=== PATIENT | male | born 1995 | race Caucasian/White ===

== ENCOUNTER 2016-10-26 18:56 | Emergency (ER) | payer OTHER ==
[~2016-10-26] VITALS: Ht 190.5 cm; Wt 125.9 kg
[~2016-10-26 18:56] MED LIST: HYDR-906 PO; IBUP-1542 PO; IBUPROFEN
[2016-10-26 18:59] VITALS: Ht 190.5 cm; Wt 125.9 kg
[2016-10-26] MEDS ORDERED: ONDANSETRON (ODT) 4 MG TAB ODT STA (19:15)
--- NOTE | 2016-10-26 19:21 | ERD ---
ER Documentation Chief Complaint Date/Time DATE: 10/26/16 TIME: 19:18 Chief Complaint back pain x 2 days, cough x2 weeks off an on. hard to take a breath HPI 21-year-old otherwise healthy male presents to the emergency department with complaints of right sided upper back pain 2 days. Patient states that for the past 2 weeks he has been experiencing a constant productive cough with associated runny nose and congestion. He currently rates his right-sided back pain as a constant 7 out of 10 sharp pain localized to the right posterior lateral upper thoracic region. He states the pain is worse upon breathing. Patient denies any recent surgery, prolonged immobilization, leg or calf swelling or tenderness. Patient denies any fever, vomiting, diarrhea, or abdominal pain. ROS All systems reviewed and are negative except as per history of present illness. Medications Home Meds Active Scripts Albuterol Sulfate* (Proair HFA*) 8.5 Gm Hfa.aer.ad, 2 PUFF INH Q4, #1 INHALER Prov:NICANOR FOWLER PA-C 10/26/16 Dextromethorphan Hb-Promethazine Hcl (Promethazine DM Syrup) 473 Ml Syrup, 5 ML PO Q6 Y for COUGH for 7 Days, ML Prov:NICANOR FOWLER PA-C 10/26/16 Ibuprofen* (Motrin*) 600 Mg Tab, 600 MG PO Q6, #30 TAB Prov:NICANOR FOWLER PA-C 10/26/16 Azithromycin* (Zithromax*) 250 Mg Tablet, 250 MG PO .ZPACK DIRECTED, #6 TAB TAKE 500 MG (2 TABS) THE FIRST DAY THEN 250 MG (1 TAB) DAYS 2-5 Prov:NICANOR FOWLER PA-C 10/26/16 Hydrocodone/Acetaminophen (Erie 5-325 Tablet) 1 Each Tablet, 1 EACH PO Q6, #6 TAB Prov:MARYANN TRACEY PA-C 06/05/16 Ibuprofen* (Motrin*) 600 Mg Tab, 600 MG PO Q6, #30 TAB Prov:MARYANN TRACEY PA-C 06/05/16 Ibuprofen* (Motrin*) 600 Mg Tab, 600 MG PO Q6H Y for PAIN AND OR ELEVATED TEMP, #30 TAB Prov:RICHIE HINES MD 9/18/16 Reported Medications [Ibuprofen] No Conflict Check 02/19/11 Discontinued Scripts Hydrocodone/Acetaminophen (Erie 5-325 Tablet) 1 Each Tablet, 1 EACH PO Q6 for 3 Days, #7 TAB Prov:NICANOR FOWLER PA-C 10/26/16 Allergies Allergies: Coded Allergies: No Known Drug Allergies (Verified Allergy, Mild, 10/26/16) PMhx/Soc Medical and Surgical Hx: pt denies Medical Hx History of Surgery: Yes (BACK) Anesthesia Reaction: No Hx Neurological Disorder: No Hx Respiratory Disorders: No Hx Cardiac Disorders: No Hx Psychiatric Problems: No Hx Miscellaneous Medical Probl: No Hx Alcohol Use: No Hx Substance Use: No Hx Tobacco Use: No Smoking Status: Never smoker Physical Exam Vitals Vital Signs Date Time Temp Pulse Resp B/P Pulse Ox O2 Delivery O2 Flow Rate FiO2 10/26/16 18:59 98.0 100 18 142/84 99 Physical Exam Const: Well-developed, well-nourished, in mild distress Head: Atraumatic Eyes: Normal Conjunctiva ENT: Normal External Ears, Nose and Mouth. Posterior pharynx non- erythematous. No tonsillar swelling or exudate. Neck: Full range of motion..~ No meningismus. Resp: No tenderness to palpation along right lateral ribs. Clear to auscultation bilaterally, no wheezes, rhonchi, rales. Mildly decreased breath sounds along bilateral lower lobes. Cardio: Regular rate and rhythm, no murmurs Abd: Soft, non tender, non distended. Normal bowel sounds Skin: No petechiae or rashes Back: No midline or flank tenderness Ext: No cyanosis, or edema Neur: Awake and alert Psych: Normal Mood and Affect Results 24 hrs Current Medications Medications (Trade) Dose Ordered Sig/Salbador Route PRN Reason Start Time Stop Time Status Last Admin Dose Admin Acetaminophen/ Hydrocodone Bitart ([place] (5/325)) 1 tab ONCE ONCE PO 10/26/16 19:30 10/26/16 19:30 DC Ondansetron HCl (Zofran Odt) 4 mg ONCE STAT ODT 10/26/16 19:15 10/26/16 19:17 DC 10/26/16 20:16 Ibuprofen (Motrin) 800 mg ONCE ONCE PO 10/26/16 19:30 10/26/16 19:31 DC 10/26/16 20:15 Procedures/MDM PROCEDURE: XR Chest. CLINICAL INDICATION: Right-sided chest pain TECHNIQUE: PA and lateral views of the chest were obtained. COMPARISON: None available FINDINGS: The trachea central bronchi are patent. The cardiomediastinal silhouette is within normal limits. The lungs are clear. No pleural effusion or pneumothorax is identified. The visualized osseous structures are intact. RPTAT:HJJR IMPRESSION: Unremarkable two-view chest x-ray. Physician Nando Date Time Electronically viewed and signed by Physician Nando on 10/26/2016 21:13 JR/ CC: NICANOR FOWLER PA-C Chest X-ray 1V Interpreted by radiologist: Soft Tissue: No acute abnormalities Bones: No acute abnormalities Mediastinum/Cardiac Silhouette/Lungs: No acute abnormalities 21-year-old male presents the emergency department complaining of right-sided back pain with associated cough and runny nose. Physical exam unremarkable for any respiratory wheezing, rhonchi, or rales. Vital signs reviewed. Patient afebrile, non-tachycardic and non-hypoxic upon arrival. Patient denies any history of lung or heart problems and denies chest pain at this time. Patient' s blood pressure was elevated (>120/80) but appears stable without evidence of hypertension emergency or urgency. The patient was counseled about the risks of hypertension and urged to pursue outpatient monitoring and therapy within a week with their primary care physician. Chest x-ray revealed no evidence of pleural effusion, pneumothorax, or consolidation. At this time I have low suspicion for acute pneumonia, PE, asthma, COPD, cardiac related shortness of breath, spontaneous pneumothorax, systemic illness or sepsis. Patient's presentation consistent with acute bronchitis and right-sided rib pain likely due to pleurisy. Based on patient's history of present illness and physical examination the decision was made to discharge. The patient was re-evaluated after ED treatment and stabilizing measures, and symptoms have improved. There is no evidence of life threatening injuries or illnesses at this time. On re-examination, patient resting in no distress, stable vital signs, reports feeling better and safe for discharge with outpatient follow up with PMD in 1-2 days. Patient given return precautions. Departure Diagnosis: Primary Impression: Back pain Back pain location: thoracic back pain Chronicity: acute Back pain laterality: right Qualified Code: M54.6 - Acute right-sided thoracic back pain Additional Impression: NICANOR Villalba PA-C October 26, 2016 19:21
[2016-10-26] MEDS ORDERED: IBUPROFEN 800 MG TAB PO ONE (19:30)
[2016-10-26] MEDS ORDERED: HYDROCODONE/APAP (5/325) TAB PO ONE (19:30)
[2016-10-26] MEDS ORDERED: D-ME473S18 PO (20:38)
[2016-10-26] MEDS ORDERED: HYDR-906 PO (20:38)
[2016-10-26] MEDS ORDERED: AZIT250T94 PO (20:38)
[2016-10-26] MEDS ORDERED: IBUP-1542 PO (20:38)
[2016-10-26] MEDS ORDERED: ALBU8.5H3 INH (20:40)
--- NOTE | 2016-10-26 21:13 | RADRPT ---
PROCEDURE: XR Chest. CLINICAL INDICATION: Right-sided chest pain TECHNIQUE: PA and lateral views of the chest were obtained. COMPARISON: None available FINDINGS: The trachea central bronchi are patent. The cardiomediastinal silhouette is within normal limits. The lungs are clear. No pleural effusion or pneumothorax is identified. The visualized osseous str uctures are intact. RPTAT:HJJR IMPRESSION: Unremarkable two-view chest x-ray. Physician Nando Date Time Electronically viewed and signed by Ramiro Valderrama Physician on 10/26/2016 21:13 JR/
[2016-10-26 21:31] VITALS: BP 139/80; PULSE 88; RESP 16
== END 2016-10-26 21:32 | disposition home or self-care (01) ==
LOC: FTE 18:56
DX: M54.6 Pain in thoracic spine (principal); R05 Cough
CPT/HCPCS: 71020; Z7502; Z7610

== ENCOUNTER 2016-10-27 07:52 | Inpatient (IN) | payer OTHER ==
[~2016-10-27] VITALS: Ht 190.5 cm; Wt 124.7 kg
[~2016-10-27 07:52] MED LIST changes: +ALBU8.5H3 INH; +AZIT250T94 PO; +D-ME473S18 PO
[2016-10-27] MEDS ORDERED: morphine 4 MG/ML VIAL IV STA (08:35)
[2016-10-27] MEDS ORDERED: ONDANSETRON 4 MG INJ IV STA (08:35)
[2016-10-27] MEDS ORDERED: SOD CHLORIDE 0.9% 1,000 ML IV STA (08:35)
--- NOTE | 2016-10-27 08:59 | ERD ---
ER Documentation Chief Complaint Date/Time DATE: 10/27/16 TIME: 08:57 Chief Complaint was seen here yesterday diagnosed with plurisy and still having pain HPI 20-year-old male comes in with bilateral back pain has been ongoing for approximately a week now. Patient states that it started on the right side and achy, constant noted when he coughs or tries to take a deep breath in or out. He also reports that he was seen here yesterday and has been taking ibuprofen and cough medication however has not had any improvement of his symptoms. He reports that he attends college, he has had a cough for approximately 2 weeks and started with a fever however that he is no longer febrile. Has had a dry cough overall, there is no hemoptysis. Patient's pain extends to the bilateral flank, and after leaving yesterday states that it starts to happen on the left side as well. He has not had any dysuria, urgency frequency or hematuria. He reports 2 episodes of nonbloody nonbilious emesis as well yesterday. ROS All systems reviewed and are negative except as per history of present illness. Medications Home Meds Active Scripts Albuterol Sulfate* (Proair HFA*) 8.5 Gm Hfa.aer.ad, 2 PUFF INH Q4, #1 INHALER Prov:NICANOR FOWLER PA-C 10/26/16 Dextromethorphan Hb-Promethazine Hcl (Promethazine DM Syrup) 473 Ml Syrup, 5 ML PO Q6 Y for COUGH for 7 Days, ML Prov:NICANOR FOWLER PA-C 10/26/16 Ibuprofen* (Motrin*) 600 Mg Tab, 600 MG PO Q6, #30 TAB Prov:NICANOR FOWLER PA-C 10/26/16 Azithromycin* (Zithromax*) 250 Mg Tablet, 250 MG PO .ArabellaPASUSANNAH DIRECTED, #6 TAB TAKE 500 MG (2 TABS) THE FIRST DAY THEN 250 MG (1 TAB) DAYS 2-5 Prov:NICANOR FOWLER PA-C 10/26/16 Hydrocodone/Acetaminophen (Homer 5-325 Tablet) 1 Each Tablet, 1 EACH PO Q6, #6 TAB Prov:MARYANN TRACEY PA-C 06/05/16 Ibuprofen* (Motrin*) 600 Mg Tab, 600 MG PO Q6, #30 TAB Prov:MARYANN TRACEY PA-C 06/05/16 Ibuprofen* (Motrin*) 600 Mg Tab, 600 MG PO Q6H Y for PAIN AND OR ELEVATED TEMP, #30 TAB Prov:RICHIE HINES MD 02/23/16 Reported Medications [Ibuprofen] No Conflict Check 02/19/11 Discontinued Scripts Hydrocodone/Acetaminophen (Homer 5-325 Tablet) 1 Each Tablet, 1 EACH PO Q6 for 3 Days, #7 TAB Prov:NICANOR FOWLER PA-C 10/26/16 Allergies Allergies: Coded Allergies: No Known Drug Allergies (Verified Allergy, Mild, 10/27/16) PMhx/Soc History of Surgery: Yes (BACK SURGERY) Anesthesia Reaction: No Hx Neurological Disorder: No Hx Respiratory Disorders: No Hx Cardiac Disorders: No Hx Psychiatric Problems: No Hx Miscellaneous Medical Probl: No Hx Alcohol Use: No Hx Substance Use: No Hx Tobacco Use: No Smoking Status: Never smoker Physical Exam Vitals Vital Signs Date Time Temp Pulse Resp B/P Pulse Ox O2 Delivery O2 Flow Rate FiO2 10/27/16 08:00 98.0 91 18 131/71 99 Physical Exam General: Well-developed, well-nourished. The patient appears in no acute distress. HEENT: Head is normocephalic, atraumatic. No scleral icterus. Pupils are equal , round, and reactive. Oral mucous membranes are moist. No pharyngeal erythema. Neck: Supple. Nontender. Lungs: Clear to auscultation. Normal air movement. Heart: Regular rate and rhythm. S1 and S2 are normal. No murmurs, gallops, or rubs. Abdomen: Soft, nontender, nondistended. Bowel sounds are normoactive. No CVA tenderness per Extremities: No clubbing or cyanosis. Normal pulses. Moving extremities x 4. No weakness. Neurologic: Alert and oriented 3. No focal deficits. Skin: Normal turgor. No rash or lesions. Result Diagram: 10/27/1653 10/27/16852 Results 24 hrs Laboratory Tests Test 10/27/16 08:44 10/27/16 08:53 Urine Color LT. YELLOW Urine Clarity CLEAR Urine pH 5.5 Urine Specific Lengby >=1.030 Urine Ketones NEGATIVE Urine Nitrite NEGATIVE Urine Bilirubin NEGATIVE Urine Urobilinogen 0.2 E.U./dL Urine Leukocyte Esterase NEGATIVE Urine Hemoglobin NEGATIVE Urine Glucose NEGATIVE% Urine Total Protein NEGATIVE White Blood Count 12.710^3/ul Red Blood Count 4.7410^6/ul Hemoglobin 13.8g/dl Hematocrit 40.7% Mean Corpuscular Volume 85.9fl Mean Corpuscular Hemoglobin 29.1pg Mean Corpuscular Hemoglobin Concent 33.9g/dl Red Cell Distribution Width 12.7% Platelet Count 53637^3/UL Mean Platelet Volume 9.6fl Neutrophils % 69.1% Lymphocytes % 22.3% Monocytes % 6.1% Eosinophils % 1.5% Basophils % 0.4% Nucleated Red Blood Cells % 0.0/100WBC Neutrophils # 8.810^3/ul Lymphocytes # 2.810^3/ul Monocytes # 0.810^3/ul Eosinophils # 0.210^3/ul Basophils # 0.110^3/ul Nucleated Red Blood Cells # 0.010^3/ul Sodium Level 141mmol/L Potassium Level 4.3mmol/L Chloride Level 107mmol/L Carbon Dioxide Level 26mmol/L Anion Gap 12 Blood Urea Nitrogen 13mg/dl Creatinine 0.67mg/dl Glucose Level 94mg/dl Calcium Level 9.5mg/dl Total Bilirubin 0.1mg/dl Direct Bilirubin 0.00mg/dl Indirect Bilirubin 0.1mg/dl Aspartate Amino Transf (AST/SGOT) 43IU/L Alanine Aminotransferase (ALT/SGPT) 111IU/L Alkaline Phosphatase 115IU/L Total Protein 7.8g/dl Albumin 4.3g/dl Globulin 3.50g/dl Albumin/Globulin Ratio 1.22 Lipase 1418U/L Current Medications Medications (Trade) Dose Ordered Sig/Salbador Route PRN Reason Start Time Stop Time Status Last Admin Dose Admin Sodium Chloride (NS) 1,000 ml @ 1,000 mls/hr Q1H STAT IV 10/27/16 08:35 10/27/16 09:34 DC 10/27/16 08:58 Ondansetron HCl (Zofran Inj) 4 mg ONCE STAT IV 10/27/16 08:35 10/27/16 08:38 DC 10/27/16 08:58 Morphine Sulfate (morphine) 4 mg ONCE STAT IV 5/23/17 08:35 10/27/16 08:38 DC 10/27/16 08:58 Procedures/MDM ED course: Patient had an IV line established, blood and urine were obtained. Patient was given morphine 4 mg and Zofran 4 mg IV. He was also given a fluid bolus of normal saline 1 L. MDM: 20-year-old male comes in with bilateral upper back pain, patient has some flank pain associated with his however not reproducible on examination, therefore further labs were ordered as well as CT scan imaging. Lipase was resulted indicates pancreatitis, greater than 1400, I presented this to my attending physician Dr Hines, who also agrees that patient needs to be admitted. He does have a history of gallstones, at this time ultrasound a CT scan imaging are both ordered and pending. Departure Diagnosis: Primary Impression: Pancreatitis, acute Condition: Stable EDEN MENA PA-C October 27, 2016 08:58
[2016-10-27 09:11] LABS: ADD SCAN DIFF NO
[2016-10-27 09:19] LABS: BASOPHIL # 0.1 10^3/ul (0.0-0.1); BASOPHILS % 0.4 % (0.0-2.0); EOSINOPHILS # 0.2 10^3/ul (0.0-0.5); EOSINOPHILS % 1.5 % (0.0-7.0); HEMATOCRIT 40.7 % (42.0-52.0); HEMOGLOBIN 13.8 g/dl (14.0-18.0); LYMPHOCYTES # 2.8 10^3/ul (0.8-2.9); LYMPHOCYTES % 22.3 % (15.0-51.0); MEAN CORPUSCULAR HEMOGLOBIN 29.1 pg (29.0-33.0); MEAN CORPUSCULAR HGB CONC 33.9 g/dl (32.0-37.0); MEAN CORPUSCULAR VOLUME 85.9 fl (82.0-101.0); MEAN PLATELET VOLUME 9.6 fl (7.4-10.4); MONOCYTE # 0.8 10^3/ul (0.3-0.9); MONOCYTES % 6.1 % (0.0-11.0); NEUTROPHIL # 8.8 10^3/ul (1.6-7.5); NEUTROPHILS % 69.1 % (39.0-77.0); PLATELET COUNT 304 10^3/UL (140-415); RED BLOOD COUNT 4.74 10^6/ul (4.70-6.10); RED CELL DISTRIBUTION WIDTH 12.7 % (11.5-14.5); WHITE BLOOD COUNT 12.7 10^3/ul (4.8-10.8)
[2016-10-27 09:36] LABS: ALBUMIN 4.3 g/dl (3.3-4.9); ALBUMIN/GLOBULIN RATIO 1.22; BILIRUBIN,INDIRECT 0.1 mg/dl (0-1.1); BILIRUBIN,TOTAL 0.1 mg/dl (0.2-1.3); CALCIUM 9.5 mg/dl (8.4-10.2); CREATININE 0.67 mg/dl (0.61-1.24); POTASSIUM 4.3 mmol/L (3.5-5.1); TOTAL PROTEIN 7.8 g/dl (6.1-8.1)
[2016-10-27 09:46] LABS: ADD UMIC NO; URINE BILIRUBIN (Dip) NEGATIVE (NEGATIVE); URINE BLOOD (Dip) NEGATIVE (NEGATIVE); URINE COLOR LT. YELLOW (YELLOW); URINE GLUCOSE (Dip) NEGATIVE (NEGATIVE); URINE KETONES (Dip) NEGATIVE (NEGATIVE); URINE LEUKOCYTE ESTERASE (Dip) NEGATIVE (NEGATIVE); URINE NITRITE (Dip) NEGATIVE (NEGATIVE); URINE TOTAL PROTEIN (Dip) NEGATIVE (NEGATIVE); URINE UROBILINOGEN (Dip) 0.2 E.U./dL (0.1-1.0)
[2016-10-27] MEDS ORDERED: ONDANSETRON 4 MG INJ IV PRN ×2 (11:00→12:00)
[2016-10-27] MEDS ORDERED: ACETAMINOPHEN 325 MG TAB PO PRN ×2 (11:00→12:00)
--- NOTE | 2016-10-27 11:46 | RADRPT ---
PROCEDURE: Right Upper Quadrant Ultrasound. CLINICAL INDICATION: Pancreatitis, back pain, right upper quadrant pain TECHNIQUE: Multiple real-time images were acquired of the patient's right upper quadrant abdomen a nd retroperitoneum utilizing a high resolution transducer. COMPARISON: Gallbladder ultrasound from 06/04/2016 FINDINGS: The liver measures 19.1 cm, and demonstrates moderately increased echogenicity. The main portal vein is patent with proper directional flow. There is no intrahepatic biliary ductal dilatation. The ext rahepatic common bile duct measures 4 mm. There is cholelithiasis. There is no gallbladder wall thickening or pericholecystic fluid. The visualized pancreas is unremarkable. The right kidney measures 10.8 cm and demonstrates normal echotexture. There is no right renal calcu armani or hydronephrosis. The visualized abdominal aorta and IVC are grossly unremarkable. IMPRESSION: Hepatomegaly with moderate fatty infiltration. Cholelithiasis without evidence of acute cholecystitis. Normal CBD. RPTAT: EE Physician Freya Date Time Electronically viewed and signed by Physician Freya on 10/27/2016 11:46 /
[2016-10-27] MEDS ORDERED: MAGNESIUM HYDROXIDE 30ML CUP PO PRN (12:00)
[2016-10-27] MEDS ORDERED: morphine 2 MG INJ IV PRN (12:00)
[2016-10-27] MEDS ORDERED: NACL 0.9% 3 ML SYG IV SCH (12:00)
[2016-10-27] MEDS ORDERED: BISACODYL 10 MG SUPP PR PRN (12:00)
[2016-10-27] MEDS ORDERED: ACETAMINOPHEN 650 MG SUPP PR PRN (12:00)
[2016-10-27] MEDS ORDERED: DOCUSATE SODIUM 100 MG CAP PO PRN (12:00)
[2016-10-27] MEDS ORDERED: HYDROCODONE/APAP (5/325) TAB PO PRN ×2 (12:00)
--- NOTE | 2016-10-27 12:36 | HP ---
Date/Time of Note Date/Time of Note DATE: 10/27/16 TIME: 12:32 Assessment/Plan VTE Prophylaxis VTE Prophylaxis Intervention: SCD's Assessment/Plan Chief Complaint/Hosp Course Impression and plan 1. Abdominal pain likely secondary to pancreatitis. Keep n.p.o. for now. Will provide with IV hydration and analgesics as needed. Patient also noted with gallstones in the gallbladder without evidence of cholecystitis. Will monitor for clinical improvement 2. Cholelithiasis. No active issue noted at this time. Patient denies any pain. Will follow up. 3. Obesity. Weight reduction was advised. Admission process 40 minutes Discussed plan of care with Dr. Reyes Problems: HPI/ROS Admit Date/Time Admit Date/Time October 27, 2016 at 10:46 Hx of Present Illness This is a 21-year-old male with history of DJD and lumbar spine surgery ( reported occurred from playing football in high school) who came to [facility] due to reports of abdominal pain. According to the patient he started to have abdominal pain after 5 PM after eating dinner. Reported the pain occurred on his right upper abdomen and gradually got worse and radiated to his left flank. He did report having some nausea but no diarrhea or vomiting. He denies any shortness of breath or chest pain or any other associated symptoms. He did report having flulike symptoms roughly 2 weeks or to this admission but did report it was slowly resolving. He denied having any fever with that but also did report he had some cough that is resolving and just now sore throat with yellowish phlegm. When he came to [facility] get and ultrasound of his gallbladder cholecystitis. CBD was noted to be normal. That did show hepatomegaly with moderate fatty infiltration and cholelithiasis without evidence of he was also have her seen with some leukocytosis likely reactive and lipase level of 1418. Patient remained afebrile and vital signs otherwise stable. We will evaluate him for the aformentiond issues ROS 12 point review of systems obtained and entirely negative except that mentioned in history of present illness PMH/Family/Social Past Medical History Medical/surgical history 1. Reported lumbar surgery 6 years ago from DJD Family History Significant Family History: no pertinent family hx Social History Alcohol Use: occasionally Smoking Status: Never smoker Drug Use: none Exam/Review of Systems Vital Signs Vitals Vital Signs Date Time Temp Pulse Resp B/P Pulse Ox O2 Delivery O2 Flow Rate FiO2 10/27/16 08:00 98.0 91 18 131/71 99 Exam Constitutional: alert, oriented Psych: nl mood/affect, no complaints Head: normocephalic Neck: supple, No jvd Respiratory: clear to auscultation, normal air movement Cardiovascular: regular rate and rhythm Gastrointestinal: non-tender, soft Musculoskeletal: nl extremities to inspection, nl gait and stance Extremities: normal pulses Neurological: GRILL ATTENDANT II-XII intact, nl mental status, nl speech Skin: nl turgor Labs Result Diagram: 10/27/16 0853 10/27/16852 Medications Medications Current Medications Sodium Chloride (NS) 1,000 ml @ 125 mls/hr Q8H IV ; Start 10/27/16 at 11:56 Ondansetron HCl (Zofran Inj) 4 mg Q6H PRN IV NAUSEA AND/OR VOMITING; Start at 12:00 Acetaminophen (Tylenol Tab) 650 mg Q6H PRN PO PAIN LEVEL 1-3 OR FEVER; Start at 12:00 Acetaminophen (Tylenol Supp) 650 mg Q6H PRN VA PAIN LEVEL 1-3 OR FEVER; Start 10/27/16 at 12:00 Acetaminophen/ Hydrocodone Bitart (Riggins (5/325)) 1 tab Q6H PRN PO MODERATE PAIN LEVEL 4-6; Start 10/27/16 at 12:00 Acetaminophen/ Hydrocodone Bitart (Riggins (5/325)) 2 tab Q6H PRN PO SEVERE PAIN LEVEL 7-10; Start 10/27/16 at 12:00 Morphine Sulfate (morphine) 2 mg Q4H PRN IV SEVERE PAIN LEVEL 7-10; Start 10/27 at 12:00 Docusate Sodium (Colace) 100 mg Q12H PRN PO CONSTIPATION; Start 10/27/16 at 12: 00 Magnesium Hydroxide (Milk Of Mag) 30 ml DAILY PRN PO CONSTIPATION; Start at 12:00 Bisacodyl (Dulcolax Supp) 10 mg DAILY PRN VA CONSTIPATION; Start 10/27/16 at 12 :00 Pantoprazole (Protonix Iv) 40 mg DAILY@06 IV ; Start 10/28/16 at 06:00 DAVE VICK October 27, 2016 12:36
[2016-10-27 12:43] VITALS: Ht 190.5 cm; Wt 124.7 kg
[2016-10-27] MEDS: SOD CHLORIDE 0.9% 1,000 ML IV SCH ×2 (13:03→19:43)
--- NOTE | 2016-10-27 13:56 | RADRPT ---
PROCEDURE: CT Abdomen and Pelvis without contrast. CLINICAL INDICATION: Bilateral flank pain TECHNIQUE: CT of the abdomen and pelvis was performed on a multi-detector scanner without IV contr ast. Coronal and sagittal images were reformatted from the axial data set. One or more of the foll owing dose reduction techniques were used: automated exposure control, adjustment of the mA and/or kV according to patient size, use of iterative reconstruction technique. CTDI = 23.6 mGy. DLP = 159 4.4 mGy-cm. COMPARISON: None. FINDINGS: CT abdomen: The lung bases are clear. The heart size is normal, without pericardial effusion. Liver (24 cm) an d spleen (15 cm) are enlarged, without evidence of focal mass. Gallbladder, biliary tree, pancreas, adrenal glands and kidneys are unremarkable. There is no urolithiasis or obstructive uropathy. Th e stomach is grossly unremarkable. The aorta is of normal caliber. There is no retroperitoneal lymphadenopathy. The betty hepatis reg ion is clear. CT pelvis: No bowel obstruction, free intraperitoneal air or abscess is identified. The appendix is well visua lized and normal. There is no diverticulosis, diverticulitis or colitis. Urinary bladder is grossl y unremarkable. No pelvic mass, free fluid or lymphadenopathy is identified. The surrounding osseous structures are remarkable for degenerative spondylosis of the spine. No ost eolytic or osteoblastic lesion is detected. The patient is status post L3, L4 and L5 laminectomies. IMPRESSION: 1. Hepatosplenomegaly is noted, without evidence of focal mass. 2. No mass, lymphadenopathy, or focal acute inflammatory process is identified. RPTAT: EE .El Soares MD, Date Time Electronically viewed and signed by .El Soares MD, on 10/27/2016 13:56 .R/
[2016-10-27 20:50] VITALS: BP 132/60; RESP 19
[2016-10-28] MEDS: CEPASTAT LOZENGE MT PRN ×2 (00:32→05:21)
[2016-10-28 03:54] VITALS: BP 118/60; PULSE 62; RESP 19
[2016-10-28] MEDS: SOD CHLORIDE 0.9% 1,000 ML IV SCH ×3 (03:56→14:32)
[2016-10-28 05:06] LABS: ADD SCAN DIFF NO
[2016-10-28 05:11] LABS: BASOPHILS % 0.2 % (0.0-2.0); EOSINOPHILS # 0.2 10^3/ul (0.0-0.5); EOSINOPHILS % 1.5 % (0.0-7.0); HEMATOCRIT 38.2 % (42.0-52.0); HEMOGLOBIN 12.6 g/dl (14.0-18.0); LYMPHOCYTES # 3.4 10^3/ul (0.8-2.9); LYMPHOCYTES % 34.3 % (15.0-51.0); MEAN CORPUSCULAR HEMOGLOBIN 28.6 pg (29.0-33.0); MEAN CORPUSCULAR VOLUME 86.8 fl (82.0-101.0); MEAN PLATELET VOLUME 9.5 fl (7.4-10.4); MONOCYTE # 0.6 10^3/ul (0.3-0.9); MONOCYTES % 5.8 % (0.0-11.0); NEUTROPHIL # 5.7 10^3/ul (1.6-7.5); NEUTROPHILS % 57.5 % (39.0-77.0); PLATELET COUNT 236 10^3/UL (140-415); RED CELL DISTRIBUTION WIDTH 12.6 % (11.5-14.5); WHITE BLOOD COUNT 9.9 10^3/ul (4.8-10.8)
[2016-10-28 05:41] LABS: ALBUMIN 3.7 g/dl (3.3-4.9); ALBUMIN/GLOBULIN RATIO 1.19; BILIRUBIN,INDIRECT 0.5 mg/dl (0-1.1); BILIRUBIN,TOTAL 0.5 mg/dl (0.2-1.3); CALCIUM 9.1 mg/dl (8.4-10.2); CHOL/HDL RATIO 4.7 RATIO; CREATININE 0.67 mg/dl (0.61-1.24); MAGNESIUM 1.8 mg/dl (1.7-2.5); TOTAL PROTEIN 6.8 g/dl (6.1-8.1)
[2016-10-28 05:56] LABS: T3 UPTAKE 37.4 % (23.5-40.5)
[2016-10-28] MEDS ORDERED: PANTOPRAZOLE 40 MG INJ IV SCH (06:00)
[2016-10-28 06:11] LABS: THYROID STIMULATING HORMONE 1.69 MIU/L (0.465-4.680)
[2016-10-28 07:00] VITALS: BP 122/72; RESP 16
--- NOTE | 2016-10-28 15:21 | PDOCDIS ---
Discharge Instructions DIAGNOSIS Discharge Diagnosis: 1. acute pancreatitis CONDITION Patient Condition: Stable HOME CARE INSTRUCTIONS: Diet Instructions: Low Fat /Cholesterol FOLLOW UP/APPOINTMENTS Appointments 1. Follow up with your primary care provider within one week DAVE VICK October 28, 2016 15:21
--- NOTE | 2016-10-28 15:25 | DS ---
Date/Time of Note Date/Time of Note DATE: 10/28/16 TIME: 15:23 Discharge Summary Admission/Discharge Info Admit Date/Time October 27, 2016 at 10:46 Discharge Date/Time Final Diagnosis 1. Acute pancreatitis 2. Obesity Hx of Present Illness This is a 21-year-old male with history of DJD and lumbar spine surgery ( reported occurred from playing football in high school) who came to [facility] due to reports of abdominal pain. According to the patient he started to have abdominal pain after 5 PM after eating dinner. Reported the pain occurred on his right upper abdomen and gradually got worse and radiated to his left flank. He did report having some nausea but no diarrhea or vomiting. He denies any shortness of breath or chest pain or any other associated symptoms. He did report having flulike symptoms roughly 2 weeks or to this admission but did report it was slowly resolving. He denied having any fever with that but also did report he had some cough that is resolving and just now sore throat with yellowish phlegm. When he came to [facility] get and ultrasound of his gallbladder cholecystitis. CBD was noted to be normal. That did show hepatomegaly with moderate fatty infiltration and cholelithiasis without evidence of he was also have her seen with some leukocytosis likely reactive and lipase level of 1418. Patient remained afebrile and vital signs otherwise stable. We will evaluate him for the aformentiond issues Hospital Course This is a 21-year-old male with history of DJD and lumbar spine surgery who came to [facility] due to reports of abdominal pain. Patient did report he had abdominal pain 5 PM the day prior to admission after having dinner. Reported that it started on his right flank and radiates his left side. He subsequently went to [facility] for further evaluation. Upon examination he did have gallbladder ultrasound that did show cholelithiasis without evidence of cholecystitis. Additionally he had elevated lipase level of 1418. Patient was seen with acute pancreatitis. He was optimized with IV hydration and initially placed n.p.o. He is also continue with analgesics. During his course of stay he did improve. Is gradually advanced on his diet and was able to tolerate oral intake well. He was advised for lifestyle modifications for his obesity. The plan of care was discussed with the patient and patient did verbalize understanding. On the day of discharge patient was in stable condition Discussed plan of care with Dr. Eric Davis process time: 40 minutes Home Meds Active Scripts Albuterol Sulfate* (Proair HFA*) 8.5 Gm Hfa.aer.ad, 2 PUFF INH Q4, #1 INHALER Prov:NICANOR FOWLER PA-C 10/26/16 Dextromethorphan Hb-Promethazine Hcl (Promethazine DM Syrup) 473 Ml Syrup, 5 ML PO Q6 Y for COUGH for 7 Days, ML Prov:NICANOR FOWLER PA-C 10/26/16 Ibuprofen* (Motrin*) 600 Mg Tab, 600 MG PO Q6, #30 TAB Prov:NICANOR FOWLER PA-C 10/26/16 Azithromycin* (Zithromax*) 250 Mg Tablet, 250 MG PO .ZPACK DIRECTED, #6 TAB TAKE 500 MG (2 TABS) THE FIRST DAY THEN 250 MG (1 TAB) DAYS 2-5 Prov:NICANOR FOWLER PA-C 10/26/16 Hydrocodone/Acetaminophen ([place] 5-325 Tablet) 1 Each Tablet, 1 EACH PO Q6, #6 TAB Prov:MARYANN TRACEY PA-C 06/05/16 Ibuprofen* (Motrin*) 600 Mg Tab, 600 MG PO Q6, #30 TAB Prov:MARYANN TRACEY PA-C 06/05/16 Ibuprofen* (Motrin*) 600 Mg Tab, 600 MG PO Q6H Y for PAIN AND OR ELEVATED TEMP, #30 TAB Prov:RICHIE HINES MD 02/23/16 Reported Medications [Ibuprofen] No Conflict Check 02/19/11 Discontinued Scripts Hydrocodone/Acetaminophen ([place] 5-325 Tablet) 1 Each Tablet, 1 EACH PO Q6 for 3 Days, #7 TAB Prov:NICANOR FOWLER PA-C 10/26/16 Follow-up Plan CONDITION Patient Condition: Stable HOME CARE INSTRUCTIONS: Diet Instructions: Low Fat /Cholesterol FOLLOW UP/APPOINTMENTS Appointments 1. Follow up with your primary care provider within one week Primary Care Provider [facility] Pending Labs Laboratory Tests Test 10/28/16 04:50 White Blood Count 9.910^3/ul (4.8-10.8) Red Blood Count 4.4010^6/ul (4.70-6.10) Hemoglobin 12.6g/dl (14.0-18.0) Hematocrit 38.2% (42.0-52.0) Mean Corpuscular Volume 86.8fl (82.0-101.0) Mean Corpuscular Hemoglobin 28.6pg (29.0-33.0) Mean Corpuscular Hemoglobin Concent 33.0g/dl (32.0-37.0) Red Cell Distribution Width 12.6% (11.5-14.5) Platelet Count 23666^3/UL (140-415) Mean Platelet Volume 9.5fl (7.4-10.4) Neutrophils % 57.5% (39.0-77.0) Lymphocytes % 34.3% (15.0-51.0) Monocytes % 5.8% (0.0-11.0) Eosinophils % 1.5% (0.0-7.0) Basophils % 0.2% (0.0-2.0) Nucleated Red Blood Cells % 0.0/100WBC (0.0-0.0) Neutrophils # 5.710^3/ul (1.6-7.5) Lymphocytes # 3.410^3/ul (0.8-2.9) Monocytes # 0.610^3/ul (0.3-0.9) Eosinophils # 0.210^3/ul (0.0-0.5) Basophils # 0.010^3/ul (0.0-0.1) Nucleated Red Blood Cells # 0.010^3/ul (0.0-0.0) Sodium Level 139mmol/L (135-144) Potassium Level 4.0mmol/L (3.5-5.1) Chloride Level 106mmol/L (97-110) Carbon Dioxide Level 28mmol/L (21-31) Anion Gap 9 (8-16) Blood Urea Nitrogen 7mg/dl (7-20) Creatinine 0.67mg/dl (0.61-1.24) Glucose Level 92mg/dl (70-220) Hemoglobin A1c 5.3% (0-5.9) Calcium Level 9.1mg/dl (8.4-10.2) Phosphorus Level 4.0mg/dl (2.5-4.9) Magnesium Level 1.8mg/dl (1.7-2.5) Total Bilirubin 0.5mg/dl (0.2-1.3) Direct Bilirubin 0.00mg/dl (0.00-0.20) Indirect Bilirubin 0.5mg/dl (0-1.1) Aspartate Amino Transf (AST/SGOT) 72IU/L (15-46) Alanine Aminotransferase (ALT/SGPT) 149IU/L (13-69) Alkaline Phosphatase 107IU/L (42-121) Total Protein 6.8g/dl (6.1-8.1) Albumin 3.7g/dl (3.3-4.9) Globulin 3.10g/dl (1.3-3.2) Albumin/Globulin Ratio 1.19 Triglycerides Level 140mg/dl (0-149) Cholesterol Level 151mg/dl (100-200) LDL Cholesterol, Calculated 91mg/dl HDL Cholesterol 32mg/dl (30-63) Cholesterol/HDL Ratio 4.7RATIO Lipase 84U/L (23-300) Thyroid Stimulating Hormone (TSH) 1.690MIU/L (0.465-4.680) Free Thyroxine Index 2.73ug/ml (0.65-3.89) Thyroxine (T4) 7.3ug/dl (5.5-11.0) Triiodothyronine (T3) Uptake 37.4% (23.5-40.5) DAVE VICK October 28, 2016 15:25
== END 2016-10-28 18:05 | disposition home or self-care (01) | DRG 440 ==
LOC: FTE 07:52 → MS1 10:46
PROVIDERS: ADMIT Hospitalist; ATTEND Hospitalist
DX: K85.90 Acute pancreatitis without necrosis or infection, unspecified (principal); E66.9 Obesity, unspecified; Z68.34 Body mass index [BMI] 34.0-34.9, adult
CPT/HCPCS: 36415; 74176; 76705; 80053; 80061; 81003; 83036; 83690; 83735; 84100; 84436; 84443; 84479; 85025; 96374; 96375; C9113; J2270; J2405; J7030

== ENCOUNTER 2016-12-28 03:19 | Emergency (ER) | payer OTHER ==
[~2016-12-28] VITALS: Ht 182.9 cm; Wt 122.0 kg
[~2016-12-28 03:19] MED LIST changes: -AZIT250T94 PO; -HYDR-906 PO; -IBUPROFEN
[2016-12-28 03:22] VITALS: Ht 182.9 cm; Wt 122.0 kg
[2016-12-28] MEDS ORDERED: SOD CHLORIDE 0.9% 1,000 ML IV STA (03:27)
[2016-12-28] MEDS ORDERED: FAMOTIDINE 20 MG INJ IV STA (03:27)
[2016-12-28] MEDS ORDERED: ONDANSETRON 4 MG INJ IV STA (03:27)
[2016-12-28] MEDS ORDERED: morphine 4 MG/ML VIAL IV STA (03:27)
[2016-12-28 04:07] LABS: ADD UMIC YES; UR ASCORBIC ACID NEGATIVE (NEGATIVE); UR BILIRUBIN (Dip) NEGATIVE (NEGATIVE); UR BLOOD (Dip) 1+ mg/dL (NEGATIVE); UR CLARITY CLEAR (CLEAR); UR COLOR YELLOW (YELLOW); UR GLUCOSE (Dip) NEGATIVE (NEGATIVE); UR KETONES (Dip) NEGATIVE (NEGATIVE); UR LEUKOCYTE ESTERASE (Dip) NEGATIVE Leu/ul (NEGATIVE); UR NITRITE (Dip) NEGATIVE (NEGATIVE); UR RBC 0 /HPF (0-5); UR SPECIFIC GRAVITY (Dip) 1.021 (1.003-1.030); UR TOTAL PROTEIN (Dip) NEGATIVE (NEGATIVE); UR UROBILINOGEN (Dip) NEGATIVE (NEGATIVE)
[2016-12-28 04:10] LABS: ALBUMIN 4.6 g/dl (3.3-4.9); ALBUMIN/GLOBULIN RATIO 1.21; BILIRUBIN,INDIRECT 0.5 mg/dl (0-1.1); BILIRUBIN,TOTAL 0.5 mg/dl (0.2-1.3); CALCIUM 9.9 mg/dl (8.4-10.2); CREATININE 0.77 mg/dl (0.61-1.24); POTASSIUM 3.9 mmol/L (3.5-5.1); TOTAL PROTEIN 8.4 g/dl (6.1-8.1)
[2016-12-28 04:15] LABS: BASOPHILS % 0.3 % (0.0-2.0); EOSINOPHILS # 0.1 10^3/ul (0.0-0.5); EOSINOPHILS % 1.2 % (0.0-7.0); HEMOGLOBIN 14.3 g/dl (14.0-18.0); LYMPHOCYTES # 3.6 10^3/ul (0.8-2.9); MEAN CORPUSCULAR HEMOGLOBIN 29.7 pg (29.0-33.0); MEAN CORPUSCULAR HGB CONC 34.9 g/dl (32.0-37.0); MEAN CORPUSCULAR VOLUME 85.2 fl (82.0-101.0); MONOCYTE # 0.6 10^3/ul (0.3-0.9); MONOCYTES % 5.4 % (0.0-11.0); NEUTROPHIL # 6.8 10^3/ul (1.6-7.5); NEUTROPHILS % 60.7 % (39.0-77.0); PLATELET COUNT 249 10^3/UL (140-415); RED BLOOD COUNT 4.81 10^6/ul (4.70-6.10); RED CELL DISTRIBUTION WIDTH 12.4 % (11.5-14.5); WHITE BLOOD COUNT 11.2 10^3/ul (4.8-10.8)
--- NOTE | 2016-12-28 04:47 | RADRPT ---
PROCEDURE: ULTRASOUND LIMITED ABDOMEN CLINICAL INDICATION: 21-year-old male with abdominal pain. TECHNIQUE: Multiple sonographic of the right upper quadrant of the abdomen were obtained. The imag es were reviewed on a PACS workstation. COMPARISON: Right upper quadrant ultrasound October 27, 2016; CT abdomen/pelvis October 27, 2016. FINDINGS: The pancreas is not well visualized secondary to overlying bowel gas. The liver displays diffuse increased echogenicity consistent with fatty infiltration. The liver hiren ures 21.0 cm in length. No evidence of intrahepatic biliary ductal dilatation is seen. The portal a nd hepatic veins are unremarkable. The gallbladder contains multiple shadowing stones. The gallbladder wall thickness is within normal limits measuring 2.6 mm. No pericholecystic fluid is seen. The common bile duct measures 3.8 mm and is not dilated. The right kidney displays normal echogenicity. The right kidney measures 10.2 cm in maximal length. No caliectasis or hydronephrosis is seen. No free fluid is seen. IMPRESSION: 1. Hepatomegaly with diffuse fatty infiltration. 2. Cholelithiasis. .Timbo Quesada MD, MD Date Time Electronically viewed and signed by .Timbo Quesada MD, on 12/28/2016 04:47 .M/
--- NOTE | 2016-12-28 05:20 | ERD ---
ER Documentation Chief Complaint Date/Time DATE: 12/28/16 TIME: 05:19 Chief Complaint Pt has hx gallstones started with ap at 2200 HPI 21-year-old male comes in with right upper abdominal pains consistent with his history of gallstones that started at 10 PM. Pain is mild to moderate intensity. Mild nausea no vomiting. No fevers no chills. No other current complaints. ROS All systems reviewed and are negative except as per history of present illness. Medications Home Meds Active Scripts Albuterol Sulfate* (Proair HFA*) 8.5 Gm Hfa.aer.ad, 2 PUFF INH Q4, #1 INHALER Prov:NICANOR FOWLER PA-C 10/26/16 Dextromethorphan Hb-Promethazine Hcl (Promethazine DM Syrup) 473 Ml Syrup, 5 ML PO Q6 Y for COUGH for 7 Days, ML Prov:NICANOR FOWLER PA-C 10/26/16 Ibuprofen* (Motrin*) 600 Mg Tab, 600 MG PO Q6H Y for PAIN AND OR ELEVATED TEMP, #30 TAB Prov:RICHIE HINES MD 02/23/16 Allergies Allergies: Coded Allergies: No Known Drug Allergies (Verified Allergy, Mild, 10/27/16) PMhx/Soc History of Surgery: Yes (back sx ) Anesthesia Reaction: No Hx Neurological Disorder: No Hx Respiratory Disorders: No Hx Cardiac Disorders: No Hx Psychiatric Problems: No Hx Miscellaneous Medical Probl: Yes (gallstones) Hx Alcohol Use: No Hx Substance Use: No Hx Tobacco Use: No Smoking Status: Never smoker Physical Exam Vitals Vital Signs Date Time Temp Pulse Resp B/P Pulse Ox O2 Delivery O2 Flow Rate FiO2 12/28/16 04:50 61 16 112/60 99 Room Air 12/28/16 03:22 98.3 69 18 122/79 100 Physical Exam Const: [] Head: Atraumatic Eyes: Normal Conjunctiva ENT: Normal External Ears, Nose and Mouth. Neck: Full range of motion..~ No meningismus. Resp: Clear to auscultation bilaterally Cardio: Regular rate and rhythm, no murmurs Abd: Soft, non tender, non distended. Normal bowel sounds Skin: No petechiae or rashes Back: No midline or flank tenderness Ext: No cyanosis, or edema Neur: Awake and alert Psych: Normal Mood and Affect Result Diagram: 12/28/16 0340 12/28/16 0340 Results 24 hrs Laboratory Tests Test 12/28/16 03:40 White Blood Count 11.210^3/ul Red Blood Count 4.8110^6/ul Hemoglobin 14.3g/dl Hematocrit 41.0% Mean Corpuscular Volume 85.2fl Mean Corpuscular Hemoglobin 29.7pg Mean Corpuscular Hemoglobin Concent 34.9g/dl Red Cell Distribution Width 12.4% Platelet Count 67883^3/UL Mean Platelet Volume 10.0fl Neutrophils % 60.7% Lymphocytes % 32.0% Monocytes % 5.4% Eosinophils % 1.2% Basophils % 0.3% Nucleated Red Blood Cells % 0.0/100WBC Neutrophils # 6.810^3/ul Lymphocytes # 3.610^3/ul Monocytes # 0.610^3/ul Eosinophils # 0.110^3/ul Basophils # 0.010^3/ul Nucleated Red Blood Cells # 0.010^3/ul Urine Color YELLOW Urine Clarity CLEAR Urine pH 5.0 Urine Specific [place] 1.021 Urine Ketones NEGATIVEmg/dL Urine Nitrite NEGATIVEmg/dL Urine Bilirubin NEGATIVEmg/dL Urine Urobilinogen NEGATIVEmg/dL Urine Leukocyte Esterase NEGATIVELeu/ul Urine Microscopic RBC 0/HPF Urine Microscopic WBC 1/HPF Urine Hemoglobin 1+mg/dL Urine Glucose NEGATIVEmg/dL Urine Total Protein NEGATIVEmg/dl Sodium Level 147mmol/L Potassium Level 3.9mmol/L Chloride Level 100mmol/L Carbon Dioxide Level 28mmol/L Anion Gap 23 Blood Urea Nitrogen 13mg/dl Creatinine 0.77mg/dl Glucose Level 96mg/dl Calcium Level 9.9mg/dl Total Bilirubin 0.5mg/dl Direct Bilirubin 0.00mg/dl Indirect Bilirubin 0.5mg/dl Aspartate Amino Transf (AST/SGOT) 24IU/L Alanine Aminotransferase (ALT/SGPT) 48IU/L Alkaline Phosphatase 79IU/L Total Protein 8.4g/dl Albumin 4.6g/dl Globulin 3.80g/dl Albumin/Globulin Ratio 1.21 Lipase 104U/L Current Medications Medications (Trade) Dose Ordered Sig/Salbador Route PRN Reason Start Time Stop Time Status Last Admin Dose Admin Sodium Chloride (NS) 1,000 ml @ 1,000 mls/hr Q1H STAT IV 12/28/16 03:27 12/28/16 04:26 DC 12/28/16 03:47 Morphine Sulfate (morphine) 4 mg ONCE STAT IV 12/28/16 03:27 12/28/16 03:28 DC 12/28/16 03:47 Ondansetron HCl (Zofran Inj) 4 mg ONCE STAT IV 12/28/16 03:27 12/28/16 03:28 DC 12/28/16 03:47 Famotidine (Pepcid Iv) 20 mg ONCE STAT IV 12/28/16 03:27 12/28/16 03:28 DC 12/28/16 03:47 Procedures/MDM Medical decision-makin-year-old male with right upper abdominal pain consistent with history of gallstones. At this point pain is resolved. No evidence of biliary obstruction or pancreatitis. Patient is stable for trial of outpatient management. Discharge home with pain medication. Told to follow- up here in 8 hours for serial abdominal exams. Departure Diagnosis: Primary Impression: Abdominal pain Abdominal location: right upper quadrant Qualified Code: R10.11 - Right upper quadrant abdominal pain Condition: Stable GARRETT LEHMAN Dec 28, 2016 05:20
[2016-12-28] MEDS ORDERED: ONDA4TAB14 PO (05:26)
[2016-12-28] MEDS ORDERED: TRAM50TA2 PO (05:26)
[2016-12-28 05:50] VITALS: BP 105/79; PULSE 61; RESP 16; TEMP 98.3
== END 2016-12-28 05:52 | disposition home or self-care (01) ==
LOC: E/R 03:19
DX: R10.11 Right upper quadrant pain (principal)
CPT/HCPCS: 36415; 76705; 80053; 81001; 83690; 85025; 96374; 96375; J2270; J2405; J7030; Z7502; Z7610